=== PATIENT | female | born 1960 | race Caucasian/White ===

== ENCOUNTER 2018-11-17 12:07 | Inpatient (IN) ==
[2018-11-17] MEDS ORDERED: predniSONE 20 MG TABLET PO ONE (13:13)
[2018-11-17] MEDS ORDERED: Ipratropium/Albuterol Neb 3 ML IH ONE (13:14)
[2018-11-17] MEDS ORDERED: Azithromycin 250 MG TABLET PO ONE (13:15)
[2018-11-17 13:22] LABS: Basophils % 0.4 %; Eosinophils # 0.1 K/mcL (0.0-0.6); Eosinophils % 0.9 %; Hematocrit 36.2 % (35.3-44.9); Hemoglobin 12.3 g/dL (11.5-15.4); Immature Granulocytes % 0.4 % (0-4); Lymphocytes # 1.3 K/mcL (0.6-4.6); Lymphocytes % 24.3 %; Mean Corpuscular Hemoglobin 33.7 pg (28.0-33.3); Mean Corpuscular Volume 99.2 fL (83.0-100.0); Mean Platelet Volume 9.6 fL (9.4-12.4); Monocytes % 19.6 %; Neutrophils # 2.9 K/mcL (1.6-8.9); Platelet Count 162 K/mcL (140-400); Red Blood Count 3.65 M/mcL (3.82-4.97); Red Cell Distribution Width 13.5 % (11.5-14.5); Segmented Neutrophils % 54.4 %
[2018-11-17 13:42] LABS: Platelet Estimate Normal (Normal)
--- NOTE | 2018-11-17 14:00 | Emergency Department Note ---
Disposition Clinical Impression: COPD exacerbation Disposition: Admitted As Inpatient Condition: Fair General Adult HPI - General Chief complaint: ED Shortness of Breath/Dyspnea Stated complaint: PANKAJ x6 months Time Seen by Provider: 11/17/18 12:27 Source: patient, family Limitations: no limitations Nursing Notes Reviewed: Yes Vital Signs Reviewed: Yes - History of Present Illness Pain Scale: 0 - Related Data Home Medications Medication Instructions Recorded Confirmed Acetaminophen [Extra Strength 500 mg PO DAILY 11/17/18 11/17/18 Non-Aspirin] Atorvastatin Calcium [Lipitor] 20 mg PO QPM 11/17/18 11/17/18 Cetirizine HCl [24Hour Allergy] 10 mg PO DAILY 11/17/18 11/17/18 Cholecalciferol (D-3) [Vitamin D] 1,000 unit PO DAILY 11/17/18 11/17/18 Desvenlafaxine [Khedezla] 100 mg PO DAILY 11/17/18 11/17/18 HydrOXYzine Pamoate [Vistaril] 50 mg PO QID 11/17/18 11/17/18 Metoprolol [Lopressor] 50 mg PO BID 11/17/18 11/17/18 Multivit-Min/FA/Lycopen/Lutein [A 1 tab PO DAILY 11/17/18 11/17/18 Thru Z Select Men 50+ Tablet] RX: Fluticasone Propionate Nasal 2 spr NS DAILY 11/17/18 11/17/18 [Flonase] RX: Loperamide [Imodium] 2 mg PO QID 11/17/18 11/17/18 RX: Prazosin [Minipress] 3 mg PO HS 11/17/18 11/17/18 Ranitidine HCl [Acid Acid Condenser] 150 mg PO DAILY 11/17/18 11/17/18 Allergies Allergy/AdvReac Type Severity Reaction Status Date / Time latex AdvReac Rash Verified 11/17/18 13:19 Past Medical History - Past Medical History Medical history: Reports: no medical history Psychiatric history: Reports: bipolar, PTSD - Social History Smoking Status: Current every day smoker Smokeless Tobacco Status: No Alcohol use: Reports: heavy Drug use: Reports: none Physical Exam - General Limitations: no limitations General appearance: alert, in no apparent distress Course Vital Signs Temperature 97.7 F 11/17/18 12:18 Pulse Rate 95 11/17/18 12:18 Respiratory Rate 19 11/17/18 12:18 Blood Pressure 134/89 11/17/18 12:18 O2 Sat by Pulse Oximetry 92 11/17/18 12:18 Temperature 98.3 F 11/17/18 18:43 Pulse Rate 102 11/17/18 18:43 Respiratory Rate 14 11/17/18 18:43 Blood Pressure 117/77 11/17/18 18:43 O2 Sat by Pulse Oximetry 91 11/17/18 18:43 Oxygen Delivery Oxygen Delivery Nasal Cannula Medical Decision Making - MDM Narrative Medical decision making narrative: Chest X-Ray 11/17/18 12:27 IMPRESSION: 1. No acute cardiopulmonary disease. D/ / Whitney Valdivia MD / Whitney Valdivia MD Interpreting Provider: Whitney Valdivia MD 1424 hrs.: Plan will be to admit for COPD exacerbation. - Lab Data Result diagrams: 11/17/18 13:04 11/17/18 13:04 Lab Results 11/17/18 11/17/18 11/17/18 Range/Units 13:04 13:04 13:04 WBC 5.3 (4.3-11.1) K/mcL RBC 3.65 L (3.82-4.97) M/mcL Hgb 12.3 (11.5-15.4) g/dL Hct 36.2 (35.3-44.9) % MCV 99.2 (83.0-100.0) fL MCH 33.7 H (28.0-33.3) pg MCHC 34.0 (31.6-35.5) g/dL RDW 13.5 (11.5-14.5) % Plt Count 162 (140-400) K/mcL MPV 9.6 (9.4-12.4) fL Immature Gran % 0.4 (0-4) % Seg Neutrophils % 54.4 % Lymphocytes % 24.3 % Monocytes % 19.6 % Eosinophils % 0.9 % Basophils % 0.4 % Neutrophils # 2.9 (1.6-8.9) K/mcL Lymphocytes # 1.3 (0.6-4.6) K/mcL Monocytes # 1.0 (0.0-1.3) K/mcL Eosinophils # 0.1 (0.0-0.6) K/mcL Basophils # 0.0 (0.0-0.2) K/mcL Platelet Estimate Normal (Normal) Sodium 139 (136-145) mEq/L Potassium 4.1 (3.5-5.1) mEq/L Chloride 106 (98-107) mEq/L Carbon Dioxide 29 (23-29) mEq/L BUN 9 (6-20) mg/dL Creatinine 0.68 (0.60-1.20) mg/dL Est GFR ( Amer) > 60 (> 60) Est GFR (Non-Af Amer) > 60 (> 60) BUN/Creatinine Ratio 13 (6-26) Glucose 102 (70-105) mg/dL Calculated Osmolality 287 (280-300) Calcium 8.9 (8.6-10.3) mg/dL Troponin I < 0.03 (< 0.04) ng/mL B-Natriuretic Peptide 56 (Less than 100) pg/mL Attestation Statement - Attestation Attestation: This documentation is done with the assistance of Dragon dictation. Despite efforts made to ensure accuracy, there may be inaccuracies in seismic prospecting observer or spelling and typographical errors. I examined this patient and my medical decision-making was reviewed with the Resident Physician. I agree with the documented findings, disposition and treatment plan as described except to the extent set forth below. Patient seen and evaluated by Dr. Fair and myself, I agree with his evaluation and management plan, supervise care the patient's stay. Patient's been complaining of increased dyspnea over the last couple months. She denies any chest pain at this time. She appears nontoxic. Checking labs EKG chest x-ray breathing treatment and reassess. She is in agreement with plan.
[2018-11-17 14:09] LABS: BUN/Creatinine Ratio 13 (6-26); Blood Urea Nitrogen 9 mg/dL (6-20); Calcium 8.9 mg/dL (8.6-10.3); Carbon Dioxide 29 mEq/L (23-29); Chloride 106 mEq/L (98-107); Glucose 102 mg/dL (70-105); Osmolality,Calculated 287 (280-300); Potassium 4.1 mEq/L (3.5-5.1); Sodium 139 mEq/L (136-145); Troponin I < 0.03 ng/mL (< 0.04); eGFR For Non-African Americans > 60 (> 60)
--- NOTE | 2018-11-17 14:23 | Emergency Department Note ---
Disposition Clinical Impression: COPD exacerbation Disposition: Admitted As Inpatient Condition: Fair Forms: ED Satisfaction Letter Time of Disposition: 14:24 General Adult HPI - General Chief complaint: ED Shortness of Breath/Dyspnea Stated complaint: PANKAJ Time Seen by Provider: 11/17/18 12:27 Source: patient, family Mode of arrival: ambulatory Limitations: no limitations Nursing Notes Reviewed: Yes Vital Signs Reviewed: Yes - History of Present Illness HPI Narrative: Patient is a 58-year-old female with a past medical history of bipolar and PTSD as well as one pack per day smoking presents emergency department for evaluation of exertional dyspnea is been going on for at least 3 months. However, recently she has been having worsening of her dyspnea as well as a yellow tinged cough. The patient denies a formal history of COPD however she has been told in the past that her lungs sound like COPD. She denies any chest pain. No other associated symptoms. Pain Scale: 0 - Related Data Home Medications Medication Instructions Recorded Confirmed Acetaminophen [Extra Strength 500 mg PO DAILY 11/17/18 11/17/18 Non-Aspirin] Atorvastatin Calcium [Lipitor] 20 mg PO QPM 11/17/18 11/17/18 Cetirizine HCl [24Hour Allergy] 10 mg PO DAILY 11/17/18 11/17/18 Cholecalciferol (D-3) [Vitamin D] 1,000 unit PO DAILY 11/17/18 11/17/18 Desvenlafaxine [Khedezla] 100 mg PO DAILY 11/17/18 11/17/18 Fluticasone Propionate Nasal 2 spr NS DAILY 11/17/18 11/17/18 [Flonase] HydrOXYzine Pamoate [Vistaril] 50 mg PO QID 11/17/18 11/17/18 Loperamide [Imodium] 2 mg PO QID 11/17/18 11/17/18 Metoprolol [Lopressor] 50 mg PO BID 11/17/18 11/17/18 Multivit-Min/FA/Lycopen/Lutein [A 1 tab PO DAILY 11/17/18 11/17/18 Thru Z Select Men 50+ Tablet] Prazosin [Minipress] 3 mg PO HS 11/17/18 11/17/18 Ranitidine HCl [Acid Fabric Worker Foreman] 150 mg PO DAILY 11/17/18 11/17/18 Allergies Allergy/AdvReac Type Severity Reaction Status Date / Time latex AdvReac Rash Verified 11/17/18 13:19 All systems ED: reviewed and negative except as stated. Review of Systems: As Per HPI Constitutional: Denies: fever, chills Cardiovascular: Reports: dyspnea on exertion. Denies: chest pain, palpitations, edema, syncope, paroxysmal nocturnal dyspnea Respiratory: Reports: cough, dyspnea, wheezes, sputum production Gastrointestinal: Denies: abdominal pain, nausea, vomiting Genitourinary: Denies: urgency, dysuria Musculoskeletal: Denies: back pain Past Medical History - Past Medical History Attestation: Yes The following information was validated with the patient. Medical history: Reports: no medical history Psychiatric history: Reports: bipolar, PTSD - Social History Smoking Status: Current every day smoker Smokeless Tobacco Status: No Alcohol use: Reports: heavy Drug use: Reports: none Physical Exam CONSTITUTIONAL: Well-appearing; well-nourished; A&O X 3, in no apparent distress. Oxygen saturation is at 90% on RA. HEAD: Normocephalic; atraumatic EYES: PERRL, no scleral icterus NOSE: The nose is normal in appearance without rhinorrhea NECK: No JVD or distended neck veins RESP: Wheezes bilaterally in all gaviria. CARD: Regular rhythm, without murmurs, rub or gallop ABD: Non-distended; non-tender, soft, without rigidity, rebound or guarding,no pulsatile mass CHEST: No pain with palpation SKIN: Normal for age and race; warm and dry without diaphoresis ; no apparent lesions EXTREMITIES: Pulses are 2 plus and equal times 4 extremities, no peripheral edema or calf muscle pain - General Limitations: no limitations General appearance: alert, in no apparent distress Course Course Narrative: Patient will undergo treatment for COPD exacerbation at this time. She received 3 breathing treatments as well as a dose of steroids and antibiotics. We will reassess the patient. While waiting also evaluate the persons exertional dyspnea with a EKG basic labs as well as a troponin. - Reevaluation(s) Reevaluation #1: Patient does not sound improved after her breathing treatments Dumas have wheezes throughout. She still sitting at 92% on room air. She will be coming into the hospital for further management of a COPD exacerbation. Labs are unremarkable, troponin is negative, EKG is nonischemic and chest x-ray is negative. Discussed this with the patient and plan for admission patient agrees. Time: 14:22 Reevaluation #2: Patient accepted to the hospitalist by Dr. Medina. Vital Signs Temperature 97.7 F 11/17/18 12:18 Pulse Rate 95 11/17/18 12:18 Respiratory Rate 11/17/18 12:18 Blood Pressure 134/89 11/17/18 12:18 O2 Sat by Pulse Oximetry 92 11/17/18 12:18 Temperature 97.7 F 11/17/18 12:41 Pulse Rate 95 11/17/18 12:41 Respiratory Rate 21 11/17/18 13:26 Blood Pressure 134/89 11/17/18 12:41 O2 Sat by Pulse Oximetry 92 11/17/18 14:29 Oxygen Delivery Oxygen Delivery Room Air Medical Decision Making - Medical Records Medical records reviewed: Yes I reviewed the patient's medical records. - Lab Data Lab results reviewed: Yes I reviewed the patient's lab results. Result diagrams: 11/17/18 13:04 11/17/18 13:04 Lab Results 11/17/18 11/17/18 11/17/18 Range/Units 13:04 13:04 13:04 WBC 5.3 (4.3-11.1) K/mcL RBC 3.65 L (3.82-4.97) M/mcL Hgb 12.3 (11.5-15.4) g/dL Hct 36.2 (35.3-44.9) % MCV 99.2 (83.0-100.0) fL MCH 33.7 H (28.0-33.3) pg MCHC 34.0 (31.6-35.5) g/dL RDW 13.5 (11.5-14.5) % Plt Count 162 (140-400) K/mcL MPV 9.6 (9.4-12.4) fL Immature Gran % 0.4 (0-4) % Seg Neutrophils % 54.4 % Lymphocytes % 24.3 % Monocytes % 19.6 % Eosinophils % 0.9 % Basophils % 0.4 % Neutrophils # 2.9 (1.6-8.9) K/mcL Lymphocytes # 1.3 (0.6-4.6) K/mcL Monocytes # 1.0 (0.0-1.3) K/mcL Eosinophils # 0.1 (0.0-0.6) K/mcL Basophils # 0.0 (0.0-0.2) K/mcL Platelet Estimate Normal (Normal) Sodium 139 (136-145) mEq/L Potassium 4.1 (3.5-5.1) mEq/L Chloride 106 (98-107) mEq/L Carbon Dioxide 29 (23-29) mEq/L BUN 9 (6-20) mg/dL Creatinine 0.68 (0.60-1.20) mg/dL Est GFR ( Amer) > 60 (> 60) Est GFR (Non-Af Amer) > 60 (> 60) BUN/Creatinine Ratio 13 (6-26) Glucose 102 (70-105) mg/dL Calculated Osmolality 287 (280-300) Calcium 8.9 (8.6-10.3) mg/dL Troponin I < 0.03 (< 0.04) ng/mL B-Natriuretic Peptide 56 (Less than 100) pg/mL - Radiology Data Radiology results reviewed: Yes I reviewed the patient's radiology results. Chest X-Ray 11/17/18 12:27 IMPRESSION: 1. No acute cardiopulmonary disease. D/ / Whitney Valdivia MD / Whitney Valdivia MD Interpreting Provider: Whitney Valdivia MD - EKG Data EKG #1 EKG attestation: Yes I reviewed and interpreted this EKG. EKG results narrative: EKG done at 12:46 shows sinus rhythm at a rate of 88 bpm. Normal axis. Intervals within normal limits. No signs of ischemia. No Old.
[2018-11-17] MEDS ORDERED: Naloxone 0.4 MG/ML INJ IVP PRN (16:15)
[2018-11-17] MEDS ORDERED: Acetaminophen 325 MG TABLET PO PRN (16:15)
--- NOTE | 2018-11-17 16:15 | Internal Med History&Physical ---
Date of Encounter: 11/17/18 Time of Encounter: 16:15 Internal Medicine - H&P: HPI Chief complaint: sob Admitted From: Emergency Dept Plans for Post Hospital Care: Home History of present illness: Ms. Ku is a 58 year old female past medical history of bipolar and PTSD 1 pack a day smoker as well as hypertension presented to [facility] ED with complaints of increasing shortness of breath on exertion that has been occurring for the past 3 months. However recently she has been experiencing worsening of her symptoms as well as experiencing cough with yellow sputum production. She denies any diagnosis of COPD and is not on any home O2 or bronchodilators. Patient received breathing treatments in the ER however continued to experiencing wheezing. She has been admitted for further workup and management of COPD exacerbation. Currently patient does not appear to be any respiratory distress she does have scattered expiratory wheezes throughout lung gaviria she also has a moist cough. Denies any fevers chills nausea vomiting or diarrhea. Denies any sick contacts she did receive the flu vaccine this year. I did discuss treatment plan with the patient who verbalized understanding. Past Med Surg Social Fam HX - Past Medical History Medical history: no medical history Psychiatric history: bipolar, PTSD - Social History Smoking Status: Current every day smoker Smokeless Tobacco Status: No Alcohol use: heavy Drug use: none - Family History Mother Living Status: Still Living Hx Family Cancer: Yes Hx Family Psychosocial Disorders: Yes (Schizophrenia) Father Living Status: Still Living Hx Family Cardiac Disorders: Yes Internal Medicine - H&P: Meds Acetaminophen [Extra Strength Non-Aspirin] 500 mg PO DAILY 11/17/18 [History] Atorvastatin Calcium [Lipitor] 20 mg PO QPM 11/17/18 [History] Cetirizine HCl [24Hour Allergy] 10 mg PO DAILY 11/17/18 [History] Cholecalciferol (D-3) [Vitamin D] 1,000 unit PO DAILY 11/17/18 [History] Desvenlafaxine [Khedezla] 100 mg PO DAILY 11/17/18 [History] Fluticasone Propionate Nasal [Flonase] 2 spr NS DAILY 11/17/18 [History] HydrOXYzine Pamoate [Vistaril] 50 mg PO QID 11/17/18 [History] Loperamide [Imodium] 2 mg PO QID 11/17/18 [History] Metoprolol [Lopressor] 50 mg PO BID 11/17/18 [History] Multivit-Min/FA/Lycopen/Lutein [A Thru Z Select Men 50+ Tablet] 1 tab PO DAILY 11/17/18 [History] Prazosin [Minipress] 3 mg PO HS 11/17/18 [History] Ranitidine HCl [Acid Corn Detasseler] 150 mg PO DAILY 11/17/18 [History] Allergy/AdvReac Type Severity Reaction Status Date / Time latex AdvReac Rash Verified 11/17/18 13:19 All Systems PM: A 10-system review of systems was performed and is negative for pertinent findings except as documented above in the HPI. - Constitutional Constitutional: no chills, no fever(s), no night sweats - EENT Eyes: no change in vision, no discharge, no pain, no photophobia Ears: no ear discharge, no ear pain, no tinnitus Nose, mouth and throat: no dysphagia, no nasal discharge, no neck pain, no sore throat - Cardiovascular Cardiovascular ROS IM: no chest pain, no diaphoresis, no dyspnea, no lightheadedness, no palpitations, no syncope - Respiratory Respiratory: cough, dyspnea on exertion, wheezing - Gastrointestinal Gastrointestinal: no abdominal pain, no diarrhea, no hematemesis, no hematochezia, no melena, no nausea, no vomiting - Genitourinary Genitourinary: no change in urinary stream, no dysuria, no flank pain, no hematuria - Musculoskeletal Musculoskeletal ROS IM: no numbness, no tingling - Integumentary Integumentary IM: no rash, no unusual bruising - Neurological Neurological ROS: no confusion, no convulsions, no focal weakness, no numbness, no tingling, no tremor(s) - Hematologic/Lymphatic Hematologic/Lymphatic: no easy bruising - Constitutional Vitals: Temp Pulse Resp BP Pulse Ox 97.7 F 95 18 139/92 92 11/17/18 12:41 11/17/18 12:41 11/17/18 15:00 11/17/18 15:00 11/17/18 14:29 General appearance: Present: A&O X 3 Exam: . - Head Head exam: Present: atraumatic, normocephalic - Eye Eye exam: Present: PERRL, conjuntiva pink, sclera anicteric Pupils: Present: PERRL - Neck Neck exam general surgery: Present: supple, trachea midline. Absent: lympha denopathy - Respiratory Respiratory exam: Present: wheezes. Absent: accessory muscle use, rales, rhonchi - Cardiovascular Cardiovascular exam: Present: RRR, +S1, +S2. Absent: diastolic murmur, gallop, rubs, systolic murmur - GI/Abdominal GI/Abdominal exam: Present: normal bowel sounds, soft, no peritoneal signs. Absent: distended, tenderness - Extremities Exam Extremities exam: Present: warm, radial pulses palpable and symmetrical. Abse nt: calf tenderness, cyanotic, pedal edema - Neurological Exam Neurological exam: Present: CN II-XII intact, oriented X3, no focal deficits. Absent: pronater drift, facial droop, speech deficit - Skin Skin exam: Present: dry, intact Internal Med - H&P Results - Labs CBC & Chem 7: 11/17/18 13:04 11/17/18 13:04 Labs: Short CBC 11/17/18 Range/Units 13:04 WBC 5.3 (4.3-11.1) K/mcL Hgb 12.3 (11.5-15.4) g/dL Hct 36.2 (35.3-44.9) % Plt Count 162 (140-400) K/mcL Neutrophils # 2.9 (1.6-8.9) K/mcL BMP 11/17/18 13:04 Sodium 139 Potassium 4.1 Chloride 106 Carbon Dioxide 29 BUN 9 Creatinine 0.68 Glucose 102 Calcium 8.9 Cardiac Enzymes 11/17/18 Range/Units 13:04 Troponin I < 0.03 (< 0.04) ng/mL - Impressions ITS Impressions Chest X-Ray 11/17/18 12:27 IMPRESSION: 1. No acute cardiopulmonary disease. D/ / Whitney Valdivia MD / Whitney Valdivia MD Interpreting Provider: Whitney Valdivia MD - Diagnostic Studies Chest x-ray Additional comments: Chest X-Ray 11/17/18 12:27 IMPRESSION: 1. No acute cardiopulmonary disease. D/ / Whitney Valdivia MD / Whitney Valdivia MD Interpreting Provider: Whitney Valdivia MD - Assessment and plan (1) COPD exacerbation Current Visit: Yes Status: Acute Assessment and plan: Patient has been experiencing shortness of breath on exertion occurring for the past 6 months however been worsening over the past few days. She also has a cough with sputum production yellow tinged. No fevers or chills she did receive the flu vaccine no sick contacts. Patient is a 1 pack-a-day smoker has not been formally diagnosed with COPD. Currently has wheezes throughout lung field We will continue with steroids placing her on 40 mg Solu-Medrol IV Oxygen as needed to maintain SPO2 greater than 92% Bronchodilators Azithromycin We will obtain sputum culture Obtain a respiratory infectious panel (2) Bipolar 1 disorder Current Visit: No Status: Chronic Assessment and plan: History of bipolar disorder currently appears to be stable at this time we will continue with home medications (3) Tobacco use Current Visit: No Status: Chronic Assessment and plan: Patient states she smokes 1 pack a day she rolls her cigarettes. Encouraged patient to stop smoking (4) Hypertension Current Visit: No Status: Chronic Assessment and plan: Per history currently blood pressure is controlled we will continue with all medications Qualifiers: Hypertension type: essential hypertension Qualified Code(s): I10 - Essential (primary) hypertension - Time Spent With Patient Total time spent is greater than 50% in coordination of care (as documented) at patient's floor/unit and/or counseling patient:
[2018-11-17] MEDS ORDERED: Albuterol 2.5 MG/3 ML NEBULIZER IH PRN (16:22)
[2018-11-17] MEDS: hydrOXYzine pamoate 25 MG CAPSULE PO SCH ×2 (17:04→20:12)
[2018-11-17] MEDS: Ipratropium/Albuterol Neb 3 ML IH SCH ×2 (17:15→22:32)
[2018-11-17] MEDS ORDERED: MethylPREDNISolone 40 MG/ML VIAL IVP SCH (18:00)
[2018-11-17] MEDS: MethylPREDNISolone 40 MG/ML VIAL IVP SCH (20:13)
[2018-11-17 21:37] LABS: Adenovirus Not Detected (Not Detect); Bordetella Pertussis Not Detected (Not Detect); Chlamydophila pneumoniae Not Detected (Not Detect); Coronavirus 229E Not Detected (Not Detect); Coronavirus HKU1 Not Detected (Not Detect); Coronavirus NL63 Not Detected (Not Detect); Coronavirus OC43 Not Detected (Not Detect); Human Metapneumovirus Not Detected (Not Detect); Human Rhinovirus/Enterovirus Not Detected (Not Detect); Influenza A Subtype 2009 H1 Not Detected (Not Detect); Influenza A Untypeable Not Detected (Not Detect); Influenza B Not Detected (Not Detect); Mycoplasma pneumoniae Not Detected (Not Detect); Parainfluenza Virus 1 Not Detected (Not Detect); Parainfluenza Virus 2 Not Detected (Not Detect); Parainfluenza Virus 3 Not Detected (Not Detect); Parainfluenza Virus 4 Not Detected (Not Detect); Respiratory Syncytial Virus DETECTED (Not Detect)
[2018-11-18] MEDS: Ipratropium/Albuterol Neb 3 ML IH SCH ×4 (04:07→22:50)
[2018-11-18 05:31] LABS: Basophils % 0.2 %; Hematocrit 40.2 % (35.3-44.9); Hemoglobin 13.4 g/dL (11.5-15.4); Immature Granulocytes % 0.5 % (0-4); Lymphocytes # 1.7 K/mcL (0.6-4.6); Lymphocytes % 29.6 %; Mean Corpuscular HGB Conc 33.3 g/dL (31.6-35.5); Mean Platelet Volume 9.7 fL (9.4-12.4); Monocytes # 0.3 K/mcL (0.0-1.3); Monocytes % 5.9 %; Neutrophils # 3.6 K/mcL (1.6-8.9); Platelet Count 180 K/mcL (140-400); Red Blood Count 4.06 M/mcL (3.82-4.97); Red Cell Distribution Width 13.5 % (11.5-14.5); Segmented Neutrophils % 63.8 %
[2018-11-18 05:50] LABS: BUN/Creatinine Ratio 15 (6-26); Blood Urea Nitrogen 8 mg/dL (6-20); Calcium 9.6 mg/dL (8.6-10.3); Carbon Dioxide 24 mEq/L (23-29); Chloride 104 mEq/L (98-107); Glucose 134 mg/dL (70-105); Osmolality,Calculated 284 (280-300); Potassium 4.2 mEq/L (3.5-5.1); Sodium 137 mEq/L (136-145); eGFR For Non-African Americans > 60 (> 60)
[2018-11-18] MEDS: MethylPREDNISolone 40 MG/ML VIAL IVP SCH ×3 (08:23→23:20)
[2018-11-18] MEDS: hydrOXYzine pamoate 25 MG CAPSULE PO SCH ×4 (08:33→20:27)
[2018-11-18] MEDS: Cholecalciferol (D-3) 1,000 UNIT TABLET PO SCH (08:33)
[2018-11-18] MEDS: Multivit/Ca/Min/Fe/FA 1 TAB TABLET PO SCH (08:34)
[2018-11-18] MEDS: Venlafaxine XR (24 HR) 150 MG CAP.ER.24H PO SCH (08:34)
[2018-11-18] MEDS: Famotidine 20 MG TABLET PO SCH (08:34)
[2018-11-18] MEDS: Fluticasone Propionate Nasal 50 MCG/SPRAY BOTTLE NS SCH (08:41)
[2018-11-18] MEDS ORDERED: Azithromycin 250 MG TABLET PO SCH (09:00)
[2018-11-18] MEDS ORDERED: predniSONE 20 MG TABLET PO SCH (09:00)
--- NOTE | 2018-11-18 16:34 | Internal Med Progress Note ---
Hospitalist Progress Note - Encounter Date of Encounter: 11/18/18 Time of Encounter: 11:00 - Subjective Interval History: Patient was seen and examined at bedside -noted conversational dyspnea she does state she becomes short of breath on exertion. She expresses that she would like to go home because she is depressed that she is taking care of. Advised patient that she needs to have someone come and take care of her animals and she will be hospitalized at least through the weekend. Patient verbalized understanding of treatment plan - Exam Vitals: Temp Pulse Resp BP Pulse Ox 97.6 F 92 16 145/89 88 11/18/18 11:44 11/18/18 11:44 11/18/18 11:44 11/18/18 11:44 11/18/18 11:44 Exam: General: Alert and oriented 3. No acute distress. Cardiovascular: RRR, Normal S1 & S2, no rubs, murmurs or gallops. JVD about 6cm. Lungs: Scattered faint expiratory wheezes Abdomen: Obese, Soft, non-tender, no rigidity or guarding. NABS in all 4 quadrants.. Extremities: no edema or tenderness. Neurological: Normal cognition. CN II-XII intact - Assessment and Plan (1) Acute respiratory failure with hypoxia Current Visit: Yes Status: Acute Assessment and Plan: 1 patient is requiring oxygen supplementation O2 saturations has been in the mid 80s on room air. She was unable to complete a 6 minute walk test due to sats dropping and dyspnea. This is most likely secondary to COPD exacerbation and RSV. We will continue with oxygen support she will require 6 minute walk prior to discharge to see if she qualifies for home oxygen continue with steroids (2) COPD exacerbation Current Visit: Yes Status: Acute Assessment and Plan: Patient has been experiencing shortness of breath on exertion occurring for the past 6 months however been worsening over the past few days. She also has a cough with sputum production yellow tinged. No fevers or chills she did receive the flu vaccine no sick contacts. Patient is a 1 pack-a-day smoker has not been formally diagnosed with COPD. Currently has wheezes throughout lung field We will continue with steroids placing her on 40 mg Solu-Medrol IV Oxygen as needed to maintain SPO2 greater than 92% Bronchodilators Azithromycin We will obtain sputum culture Obtain a respiratory infectious panel 11/18/2018 She continues to have faint expiratory wheezes as well as exertional dyspnea Continue with oxygen support titrating maintain SPO2 greater than 92% Continue bronchodilators azithromycin Respiratory infectious panel was positive for RSV Sputum culture is pending Continuous steroid (3) Bipolar 1 disorder Current Visit: No Status: Chronic Assessment and Plan: History of bipolar disorder currently appears to be stable at this time we will continue with home medications (4) Tobacco use Current Visit: No Status: Chronic Assessment and Plan: Patient states she smokes 1 pack a day she rolls her cigarettes. Encouraged patient to stop smoking (5) Hypertension Current Visit: No Status: Chronic Assessment and Plan: Per history currently blood pressure is controlled we will continue with all medications (6) RSV infection Current Visit: Yes Status: Acute Assessment and Plan: History of COPD current tobacco smoker respiratory infectious panel was positive for RSV Continue with oxygen support as well as steroids - Time Spent with Patient Total time spent is greater than 50% in coordination of care (as documented) at patient's floor/unit and/or counseling patient: Internal Medicine: Result - Labs CBC & Chem 7: 11/18/18 04:32 11/18/18 04:32 Labs: Short CBC 11/18/18 Range/Units 04:32 WBC 5.6 (4.3-11.1) K/mcL Hgb 13.4 (11.5-15.4) g/dL Hct 40.2 (35.3-44.9) % Plt Count 180 (140-400) K/mcL Neutrophils # 3.6 (1.6-8.9) K/mcL BMP 11/18/18 04:32 Sodium 137 Potassium 4.2 Chloride 104 Carbon Dioxide 24 BUN 8 Creatinine 0.54 L Glucose 134 H Calcium 9.6 Consult Discharge Plan - Plan Referrals: NONE,PCP [Primary Care Provider] - (5) Hypertension Qualifiers: Hypertension type: essential hypertension Qualified Code(s): I10 - Essential (primary) hypertension
[2018-11-19] MEDS: Ipratropium/Albuterol Neb 3 ML IH SCH ×4 (04:32→23:01)
[2018-11-19] MEDS: MethylPREDNISolone 40 MG/ML VIAL IVP SCH ×2 (05:25→11:42)
[2018-11-19 05:44] LABS: Basophils % 0.1 %; Hematocrit 38.1 % (35.3-44.9); Hemoglobin 12.8 g/dL (11.5-15.4); Immature Granulocytes % 0.7 % (0-4); Lymphocytes # 1.3 K/mcL (0.6-4.6); Mean Corpuscular HGB Conc 33.6 g/dL (31.6-35.5); Mean Corpuscular Hemoglobin 33.2 pg (28.0-33.3); Mean Corpuscular Volume 98.7 fL (83.0-100.0); Mean Platelet Volume 9.4 fL (9.4-12.4); Monocytes # 0.5 K/mcL (0.0-1.3); Monocytes % 5.4 %; Platelet Count 193 K/mcL (140-400); Red Blood Count 3.86 M/mcL (3.82-4.97); Red Cell Distribution Width 13.8 % (11.5-14.5); Segmented Neutrophils % 79.8 %
[2018-11-19 05:49] LABS: Neutrophils # 7.7 K/mcL (1.6-8.9)
[2018-11-19 05:54] LABS: BUN/Creatinine Ratio 25 (6-26); Blood Urea Nitrogen 14 mg/dL (6-20); Calcium 9.4 mg/dL (8.6-10.3); Carbon Dioxide 23 mEq/L (23-29); Chloride 102 mEq/L (98-107); Glucose 141 mg/dL (70-105); Osmolality,Calculated 283 (280-300); Sodium 135 mEq/L (136-145); eGFR For Non-African Americans > 60 (> 60)
[2018-11-19] MEDS: Fluticasone Propionate Nasal 50 MCG/SPRAY BOTTLE NS SCH (09:05)
[2018-11-19] MEDS: Multivit/Ca/Min/Fe/FA 1 TAB TABLET PO SCH (09:06)
[2018-11-19] MEDS: Azithromycin 250 MG TABLET PO SCH (09:06)
[2018-11-19] MEDS: hydrOXYzine pamoate 25 MG CAPSULE PO SCH ×4 (09:06→20:03)
[2018-11-19] MEDS: Venlafaxine XR (24 HR) 150 MG CAP.ER.24H PO SCH (09:06)
[2018-11-19] MEDS: Famotidine 20 MG TABLET PO SCH (09:06)
[2018-11-19] MEDS: Cholecalciferol (D-3) 1,000 UNIT TABLET PO SCH (09:06)
--- NOTE | 2018-11-19 16:07 | Internal Med Progress Note ---
Hospitalist Progress Note - Encounter Date of Encounter: 11/19/18 Time of Encounter: 11:30 - Subjective Interval History: Patient was seen and examined at bedside -rest state has improved from yesterday- however continues to have oxygen saturations in the 80s on room air. We will continue to monitor and decrease steroids discuss treatment plans with patient who verbalized understanding - Exam Vitals: Temp Pulse Resp BP Pulse Ox 98.3 F 86 16 161/96 92 11/19/18 15:18 11/19/18 15:18 11/19/18 15:18 11/19/18 15:18 11/19/18 15:18 Exam: General: Alert and oriented 3. No acute distress. Cardiovascular: RRR, Normal S1 & S2, no rubs, murmurs or gallops. JVD about 6cm. Lungs: Diminished clear throughout Abdomen: Obese, Soft, non-tender, no rigidity or guarding. NABS in all 4 quadrants.. Extremities: no edema or tenderness. Neurological: Normal cognition. CN II-XII intact - Assessment and Plan (1) Acute respiratory failure with hypoxia Current Visit: Yes Status: Acute Assessment and Plan: 1 patient is requiring oxygen supplementation O2 saturations has been in the mid 80s on room air. She was unable to complete a 6 minute walk test due to sats dropping and dyspnea. This is most likely secondary to COPD exacerbation and RSV. We will continue with oxygen support she will require 6 minute walk prior to discharge to see if she qualifies for home oxygen continue with steroids 11/19/2018 Respiratory state has improved we will continue with oxygen supplementation oxygen saturations mid 80s on room air-this is most likely secondary to COPD exacerbation and RSV she will require home oxygen set up prior discharge (2) COPD exacerbation Current Visit: Yes Status: Acute Assessment and Plan: Patient has been experiencing shortness of breath on exertion occurring for the past 6 months however been worsening over the past few days. She also has a cough with sputum production yellow tinged. No fevers or chills she did receive the flu vaccine no sick contacts. Patient is a 1 pack-a-day smoker has not been formally diagnosed with COPD. Currently has wheezes throughout lung field We will continue with steroids placing her on 40 mg Solu-Medrol IV Oxygen as needed to maintain SPO2 greater than 92% Bronchodilators Azithromycin We will obtain sputum culture Obtain a respiratory infectious panel 11/18/2018 She continues to have faint expiratory wheezes as well as exertional dyspnea Continue with oxygen support titrating maintain SPO2 greater than 92% Continue bronchodilators azithromycin Respiratory infectious panel was positive for RSV Sputum culture is pending Continuous steroid 11/19/2018 Respiratory state has improved lung sounds are diminished but clear at this time We will place on home oxygen level and monitor today continues to be in the 80s on room air she require home oxygen set up prior to discharge Respiratory infectious panel was positive for RSV Sputum culture is pending We will taper down steroids Continue with azithromycin (3) Bipolar 1 disorder Current Visit: No Status: Chronic Assessment and Plan: History of bipolar disorder currently appears to be stable at this time we will continue with home medications 11/19/2018 Currently stable (4) Tobacco use Current Visit: No Status: Chronic Assessment and Plan: Patient states she smokes 1 pack a day she rolls her cigarettes. Encouraged patient to stop smoking (5) Hypertension Current Visit: No Status: Chronic Assessment and Plan: Per history currently blood pressure is controlled we will continue with all medications 11/19/2018 Continue home medications (6) RSV infection Current Visit: Yes Status: Acute Assessment and Plan: History of COPD current tobacco smoker respiratory infectious panel was positive for RSV Continue with oxygen support as well as steroids 11/19/2018 Continue with steroids and oxygen support - Time Spent with Patient Total time spent is greater than 50% in coordination of care (as documented) at patient's floor/unit and/or counseling patient: Internal Medicine: Result - Labs CBC & Chem 7: 11/19/18 05:15 11/19/18 05:15 Labs: Short CBC 11/19/18 Range/Units 05:15 WBC 9.6 D (4.3-11.1) K/mcL Hgb 12.8 (11.5-15.4) g/dL Hct 38.1 (35.3-44.9) % Plt Count 193 (140-400) K/mcL Neutrophils # 7.7 (1.6-8.9) K/mcL BMP 11/19/18 05:15 Sodium 135 L Potassium 4.0 Chloride 102 Carbon Dioxide 23 BUN 14 Creatinine 0.55 L Glucose 141 H Calcium 9.4 Consult Discharge Plan - Plan Referrals: NONE,PCP [Primary Care Provider] - (5) Hypertension Qualifiers: Hypertension type: essential hypertension Qualified Code(s): I10 - Essential (primary) hypertension
[2018-11-19] MEDS ORDERED: MethylPREDNISolone 40 MG/ML VIAL IVP SCH (23:00)
[2018-11-20] MEDS: Ipratropium/Albuterol Neb 3 ML IH SCH ×2 (04:27→10:49)
[2018-11-20 05:38] LABS: Basophils % 0.1 %; Hematocrit 40.1 % (35.3-44.9); Hemoglobin 13.5 g/dL (11.5-15.4); Immature Granulocytes % 0.8 % (0-4); Lymphocytes # 1.6 K/mcL (0.6-4.6); Lymphocytes % 18.9 %; Mean Corpuscular HGB Conc 33.7 g/dL (31.6-35.5); Mean Corpuscular Hemoglobin 32.8 pg (28.0-33.3); Mean Corpuscular Volume 97.6 fL (83.0-100.0); Mean Platelet Volume 9.2 fL (9.4-12.4); Monocytes # 0.7 K/mcL (0.0-1.3); Monocytes % 8.5 %; Neutrophils # 6.2 K/mcL (1.6-8.9); Platelet Count 205 K/mcL (140-400); Red Blood Count 4.11 M/mcL (3.82-4.97); Red Cell Distribution Width 13.3 % (11.5-14.5); Segmented Neutrophils % 71.7 %
[2018-11-20 05:57] LABS: BUN/Creatinine Ratio 22 (6-26); Blood Urea Nitrogen 12 mg/dL (6-20); Calcium 9.6 mg/dL (8.6-10.3); Carbon Dioxide 26 mEq/L (23-29); Chloride 100 mEq/L (98-107); Glucose 115 mg/dL (70-105); Osmolality,Calculated 281 (280-300); Sodium 135 mEq/L (136-145); eGFR For Non-African Americans > 60 (> 60)
[2018-11-20] MEDS: Azithromycin 250 MG TABLET PO SCH (08:43)
[2018-11-20] MEDS: Fluticasone Propionate Nasal 50 MCG/SPRAY BOTTLE NS SCH (08:43)
[2018-11-20] MEDS: Cholecalciferol (D-3) 1,000 UNIT TABLET PO SCH (08:43)
[2018-11-20] MEDS: Multivit/Ca/Min/Fe/FA 1 TAB TABLET PO SCH (08:43)
[2018-11-20] MEDS: Famotidine 20 MG TABLET PO SCH (08:43)
[2018-11-20] MEDS: Venlafaxine XR (24 HR) 150 MG CAP.ER.24H PO SCH (08:43)
[2018-11-20] MEDS: hydrOXYzine pamoate 25 MG CAPSULE PO SCH (08:43)
[2018-11-20 10:53] VITALS: BP 164/102
--- NOTE | 2018-11-20 11:21 | Discharge Summary ---
- NOTES TO OUTPATIENT PROVIDER Notes to Outpatient Provider: steroid taper, Zithromax,duo nebs Orders not resulted at time of discharge: Pending orders 11/18/18 16:28 EKG [ECG 12 lead ECG] [ECG] Routine Date of Encounter: 11/20/18 Time of Encounter: 11:16 - Discharge Diagnosis (1) Acute respiratory failure with hypoxia Priority: Primary Status: Acute (2) COPD exacerbation Priority: Secondary Status: Acute (3) Bipolar 1 disorder Priority: Secondary Status: Chronic (4) Tobacco use Priority: Secondary Status: Chronic (5) Hypertension Priority: Secondary Status: Chronic Qualifiers: Hypertension type: essential hypertension Qualified Code(s): I10 - Essential (primary) hypertension (6) RSV infection Priority: Secondary Status: Acute Hospital course: Ms. Ku is a 58 year old female with medical history of bipolar PTSD 1 pack a day smoker as well as hypertension presented to [facility] with complaints of increasing shortness of breath on exertion this has been occurring over the past 3 months however over the past 3 days and has been worsening. She is also being steroids and cough with yellow sputum production no fevers or chills. She denies any previous history of COPD diagnosis and is not on any home O2 or bronchodilators. She was admitted and given steroids as well as antibiotics and bronchodilators. Respiratory panel was completed which did show RSV. Respiratory state did slowly improve initially she qualified for home O2 but after another 24 hours of steroids her respiratory state improved to 94% on room air. Advised patient to follow-up with primary care provider since his provider nasogastric Medications accordingly. Offered patient cessation but she did decline. Currently she is hemodynamically stable and is ready for discharge. Discharge discussed with: patient - Time Spent with Patient Total time spent providing and/or coordinating discharge services: - Discharge Medications Prescriptions: Albuterol Sulfate [Albuterol Inhaler] 0 puff IH Q6HR PRN #1 hfa.aer.ad PRN Reason: Shortness Of Breath/Wheezing Azithromycin [Zithromax] 250 mg PO DAILY #2 tablet Ipratropium/Albuterol Neb [Duoneb] 3 ml IH QIDR PRN #30 inhsol PRN Reason: Shortness Of Breath/Wheezing predniSONE [PredniSONE] 10 mg PO DAILY #30 tablet Home Medications: Acetaminophen [Extra Strength Non-Aspirin] 500 mg PO DAILY 11/17/18 [History] Atorvastatin Calcium [Lipitor] 20 mg PO QPM 11/17/18 [History] Cetirizine HCl [24Hour Allergy] 10 mg PO DAILY 11/17/18 [History] Cholecalciferol (D-3) [Vitamin D] 1,000 unit PO DAILY 11/17/18 [History] Desvenlafaxine [Khedezla] 100 mg PO DAILY 11/17/18 [History] Fluticasone Propionate Nasal [Flonase] 2 spr NS DAILY 11/17/18 [History] HydrOXYzine Pamoate [Vistaril] 50 mg PO QID 11/17/18 [History] Loperamide [Imodium] 2 mg PO QID 11/17/18 [History] Metoprolol [Lopressor] 50 mg PO BID 11/17/18 [History] Multivit-Min/FA/Lycopen/Lutein [A Thru Z Select Men 50+ Tablet] 1 tab PO DAILY 11/17/18 [History] Prazosin [Minipress] 3 mg PO HS 11/17/18 [History] Ranitidine HCl [Acid Machine Hostler] 150 mg PO DAILY 11/17/18 [History] Albuterol Sulfate [Albuterol Inhaler] 0 puff IH Q6HR PRN #1 hfa.aer.ad 11/20/18 [Rx] Azithromycin [Zithromax] 250 mg PO DAILY #2 tablet 11/20/18 [Rx] Ipratropium/Albuterol Neb [Duoneb] 3 ml IH QIDR PRN #30 inhsol 11/20/18 [Rx] predniSONE [PredniSONE] 10 mg PO DAILY #30 tablet 11/20/18 [Rx] Allergies/Adverse Reactions: Allergy/AdvReac Type Severity Reaction Status Date / Time latex AdvReac Rash Verified 11/17/18 13:19 Date of admission: 11/18/18 17:58 Primary care physician: PCP NONE Consults: 11/20/18 09:16 Consult to Nurse Navigator [CONS] Routine Comment: COPD Discharging clinician: Jena Pierce Anticipated date of discharge: 11/20/18 - Constitutional Vitals: Temp Pulse Resp BP Pulse Ox 96.3 F L 73 15 164/102 95 11/20/18 10:51 11/20/18 10:51 11/20/18 10:51 11/20/18 10:51 11/20/18 10:51 General appearance: Present: A&O X 3 Exam: General: Alert and oriented 3. No acute distress. Cardiovascular: RRR, Normal S1 & S2, no rubs, murmurs or gallops. JVD about 6cm. Lungs: Diminished clear throughout Abdomen: Obese, Soft, non-tender, no rigidity or guarding. NABS in all 4 quadrants.. Extremities: no edema or tenderness. Neurological: Normal cognition. CN II-XII intact - Patient Status Disposition: Home, Self-Care Condition: Fair - Discharge Instructions Instructions: Albuterol (By breathing), Prednisone (By mouth), Azithromycin (By mouth), Ipratropium/Albuterol (By breathing), Respiratory Syncytial Virus (DC) Follow Up With: Danielle Patel CNP [Other] - 11/29/18 11:00 am ()
--- NOTE | 2018-11-21 06:20 | Electrocardiograph Report ---
[facility] Test Date: 2018-11-17 Pat Name: Nelida Ku Department: [id number] Room: 3B Gender: Customs Broker: : 1960 Requested By: Fady Lindsey Order Number: [id number] Reading MD: Zaire Mclean Measurements Intervals [place] Rate: 88 P: 72 NE: 174 QRS: 39 QRSD: 79 T: 57 QT: 359 QTc: 435 Interpretive Statements Sinus rhythm Electronically Signed On 11-21-2018 6:18:35 EST by Zaire Mclean
--- NOTE | 2018-11-21 17:29 | Electrocardiograph Report ---
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
== END 2018-11-20 12:23 | disposition home or self-care (01) | DRG 140 ==
LOC: EMEROOARM 12:07 → 3BNU 12:07
PROVIDERS: ADMIT Hospitalist; ATTEND Hospitalist